=== PATIENT | male | born 1955 | race Caucasian/White ===

== ENCOUNTER 2023-11-30 14:58 | Emergency (ER) | payer BC, MEDICARE, SELFPAY ==
[2023-11-30 15:04] VITALS: BP 123/80
--- NOTE | 2023-11-30 15:33 | ED.GENMED ---
History of Present Illness
General
Chief Complaint: Musculo-Skeletal Complaint
Source: patient and spouse
Time Seen by Provider: 11/30/23 15:20
History of Present Illness
History of Present Illness:
68-year-old male with past medical history of previous CT, hypertension, hyperlipidemia presenting to the emergency department for evaluation of neck pain that has been ongoing for the better part of the last few months, seen at [facility] and had an
x-ray done there which reports showed a compression fracture which they believe was around C5 or C6, recommended to do physical therapy and have been going to multiple therapy sessions with some improvement however last night into today
patient's neck pain got worse, more limited range of motion and was unrelieved with [id number] measures and cyclobenzaprine that was prescribed by the primary care provider so the decided to come to the ER for further evaluation. was
concerned that if patient did have a compression fracture that nothing else was being done about this. Patient denies any headaches, focal weakness or numbness, radicular type pain, new trauma, fevers or any other concerns.
Past History
Past History
ED Past Medical History: CAD, Cancer, HTN, Hypercholesterolemia, CT, Psychiatric (Depression.) and Other (melanoma)
ED Past Surgical History: Orthopedic and Other (melanoma removed)
Social History
Tobacco: Non-smoker
Alcohol: Occasional
Drug: None
Personal:
Living: with family
Employment: Employed
Family History
Family History: Other (Noncontributory)
Review of Systems
Review of Systems
All Other Systems: ROS reviewed and negative except as documented in HPI and ROS
Phy Exam
Physical Exam
Physical Exam:
GENERAL: Alert , in no apparent distress
EYE: conjunctiva clear
Head: Normocephalic atraumatic
NECK: Supple, no focal areas of tenderness. Patient did have pain when attempting to perform neck extension as well as lateral rotation.
ENT: mmm.
LUNGS: no acute respiratory distress
NEUROLOGICAL: Alert and oriented sensation is grossly intact to light touch throughout bilateral upper extremities. Strength 5 out of 5 including channel manager strength to the upper extremity bilateral
SKIN: Warm and dry, skin intact.
MUSCULOSKELETAL: well perfused.
PSYCH: Normal and appropriate interaction.
Scores
Heart Failure Risk
Heart Failure Risk Score: Not Applicable
Heart Score for Chest Pain Patients
STEMI patient?: Not applicable
Withdrawal Assessment of Alcohol
Withdrawal Assessment Completed?: Not applicable
Course
Orders/Labs/Results
Orders:
Orders
11/30/23 15:31
Diazepam [Valium] 5 mg PO NOW STA
Lidocaine [Lidocaine 4% Patch] 1 patch TOPICAL NOW STA
Apply Lidocaine patch(s) to:: neck
CR Cervical Spine 4 Or 5 Vw Urgent
Comment:
Reason For Exam: neck pain, decreased ROM
Vital Signs
Initial and Last Documented VS:
Initial Vital Signs
Temp Pulse Resp BP Pulse Ox
97.8 F 70 18 123/80 95
11/30/23 15:04 11/30/23 15:04 11/30/23 15:04 11/30/23 15:04 11/30/23 15:04
Last Documented Vital Signs
Temp Pulse Resp BP Pulse Ox
97.8 F 70 18 123/80 95
11/30/23 15:04 11/30/23 15:04 11/30/23 15:04 11/30/23 15:04 11/30/23 15:04
MDM/Problems Addressed
Differential Diagnosis Includes:
Degenerative changes, osteoarthritis, disc herniation, nerve impingement, muscle spasm
MDM/Problems Addressed:
68-year-old male presenting emergency department for evaluation of neck pain that is been ongoing for few months. Seen by [facility] and was recommended for physical therapy which patient has been doing but has had increased pain over the last 24
hours that did not respond to cyclobenzaprine. Patient without any fevers or infectious symptoms or trauma. Patient and are requesting a new x-ray. Discussed with them the possibility that patient may need more advanced imaging such as an
MRI. In the meantime we will treat with Valium and topical Lidoderm patch. Patient may continue NSAIDs/Tylenol at home and will also add on a Medrol Dosepak to the patient's treatment regimen.
*Radiology
Radiology exam reviewed: preliminary read by ED provider (degenerative changes at c5-c6)
*Pulse Oximetry
Patient hypoxic: no
*Critical Care Note
Total Time (30-74mins, 75-104mins- exclusive of procedures): Not Applicable
Patient Management
Escalation/DeEscalation of care consider admission/obs:
Patient's x-ray without any acute abnormalities. Degenerative changes noted. Radiology did note there is also degenerative changes at C6 and C7 and straightening of the natural lordotic curve. Patient was provided with a printout of this x-ray
report. Continue [id number] measures and provided with prescriptions for Valium and Medrol Dosepak. Patient is otherwise stable for discharge and outpatient follow-up.
ED Attending Note
-
Portions of this chart may have been created with voice recognition software.� Occasional wrong word or��sound alike� substitutions may have occurred due to the inherent limitations of voice recognition software.
Discharge Plan
Departure
Patient Disposition: Home (Routine Discharge)
Date of Disposition: 11/30/23
Time of Disposition: 16:22
Patient with high blood pressure during this ER visit?: No
Discharge Problem:
Cervicalgia
Instructions: Neck pain
Prescriptions:
New
diazepam [Valium] 5 mg tablet
5 mg PO BID PRN (Reason: muscle spasm) Qty: 10 0RF
methylprednisolone [Medrol (Vignesh)] 4 mg tablets,dose pack
4 mg PO DIRECTED Qty: 21 0RF
No Action
escitalopram oxalate 10 MG tablet
10 mg PO DAILY
multivitamin with folic acid [Tab-A-Tony] 1 TABLET tablet
1 tab PO DAILY
nitroglycerin 0.4 MG tablet, sublingual
0.4 mg sublingual [id number] PRN (Reason: chest pain) Qty: 25 5RF
hydrochlorothiazide 25 MG tablet
25 mg PO DAILY
acetaminophen [Tylenol Ex Str Arthritis Pain] 500 mg Tablet
500 mg PO Q6H PRN (Reason: mild pain)
spironolactone 25 mg Tablet
25 mg PO BID
amlodipine 10 mg Tablet
10 mg PO DAILY
metformin 500 mg Tablet Extended Release 24 Hr
500 mg PO QPM
metformin 1,000 mg Tablet Extended Release 24 Hr
1,000 mg PO DAILY
Livalo 4 mg Tablet
4 mg PO QPM
aspirin 81 MG tablet,chewable
81 mg PO DAILY
Referrals:
Mando Hansen DO [Family Provider] -
Interventions
Interventions:
*Risk Screen - Suicide Last Done: 11/30/23 15:04
*General Assessment Last Done: 11/30/23 15:04
*Neglect/Abuse Screening Last Done: 11/30/23 15:04
*ED COVID-19 Vaccine History Last Done: 11/30/23 15:04
ED-Musculoskeletal Assessment Last Done: 11/30/23 15:43
Discharge Date and Time
Print Language: UPPER SORBIAN
[2023-11-30] MEDS: VALIUM 5 MG PO (15:39)
[2023-11-30] MEDS: LIDOCAINE 4% PATCH 1 PATCH TOPICAL (15:39)
== END 2023-11-30 16:57 | disposition home or self-care (01) ==
LOC: EMR 14:58
PROVIDERS: EMERGENCY PHYSICIAN Student in an Organized Health Care Education/Training Program; FAMILY PHYSICIAN Family Medicine
DX: M54.2 Cervicalgia (principal); I25.2 Old myocardial infarction; I10 Essential (primary) hypertension; E78.00 Pure hypercholesterolemia, unspecified; F32.A Depression, unspecified; I25.10 Atherosclerotic heart disease of native coronary artery without angina pectoris; Z85.820 Personal history of malignant melanoma of skin
CPT/HCPCS: 99283; 72050

== ENCOUNTER → 2024-02-12 09:54 | Outpatient (REF) | payer BC, MEDICARE, SELFPAY | LOC: RAD 09:54 | PROVIDERS: ATTENDING PHYSICIAN Family Medicine | DX: M25.552 Pain in left hip (principal) | CPT/HCPCS: 73502 ==

== ENCOUNTER 2024-12-01 12:36 | Emergency (ER) | payer SELFPAY ==
[2024-12-01 12:40] VITALS: BP 128/72
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
[2024-12-01 14:57] VITALS: BP 131/77
== END 2024-12-01 14:58 | disposition home or self-care (01) ==
LOC: EMR 12:36
PROVIDERS: EMERGENCY PHYSICIAN Emergency Medicine; FAMILY PHYSICIAN Family Medicine
DX: S09.90XA Unspecified injury of head, initial encounter (principal); V89.2XXD Person injured in unspecified motor-vehicle accident, traffic, subsequent encounter; Y92.410 Unspecified street and highway as the place of occurrence of the external cause; I25.10 Atherosclerotic heart disease of native coronary artery without angina pectoris; I10 Essential (primary) hypertension; E78.00 Pure hypercholesterolemia, unspecified; F32.A Depression, unspecified; I25.2 Old myocardial infarction; Z79.82 Long term (current) use of aspirin; Z85.820 Personal history of malignant melanoma of skin; Z88.6 Allergy status to analgesic agent
CPT/HCPCS: 99282

== ENCOUNTER → 2025-03-09 11:35 | Outpatient (REF) | payer MEDICARE, SELFPAY | LOC: RAD 11:35 | PROVIDERS: ATTENDING PHYSICIAN Internal Medicine Hematology & Oncology; FAMILY PHYSICIAN Family Medicine | DX: C85.92 Non-Hodgkin lymphoma, unspecified, intrathoracic lymph nodes (principal) | CPT/HCPCS: 71260; 74177; Q9967 ==